=== PATIENT | male | born 1980 | race American Indian/Alaskan Native ===

== ENCOUNTER 2019-04-04 15:30 | Emergency (ER) | payer SELFPAY ==
[2019-04-04 15:54] VITALS: BP 149/100
--- NOTE | 2019-04-04 15:57 | Emergency Department Report ---
Chief Complaint: Dental/Oral Stated Complaint: RT SIDE TOOTHACHE/SWEATS/PAIN Time Seen by Provider: 04/04/19 15:52 - HPI History of Present Illness: This is a 38-year-old male that presents to the ER with right sided dental pain for 3 days. Reports pain is worse with eating. 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 Patient denies any facial swelling. Denies any fever, chills, headache, nausea, vomiting, chest pain or SOB. Denies any other complaints. Denies any allergies. - ROS Review of Systems: Stated complaint: dental pain Other details as noted in HPI Constitutional: denies: fever, malaise ENT: dental pain. denies: ear pain, throat pain Respiratory: denies: cough, shortness of breath - Exam Vital Signs: Vital Signs 04/04/19 15:52 Temperature 98.3 F Pulse Rate 78 Respiratory 18 Rate Blood Pressure 149/100 O2 Sat by Pulse 98 Oximetry Physical Exam: General appearance: alert, in no apparent distress, other (appears well appears) Head exam: Present: atraumatic, normocephalic Eye exam: Present: normal appearance. Absent: scleral icterus, conjunctival injection ENT exam: Present: other (dental caries tooth #30, tenderness, absent gingival swelling) Neck exam: Present: normal appearance, absent lymphadnopathy Respiratory exam: Present: respiratory distress Neurological exam: Present: alert, oriented X3 Psychiatric exam: Present: normal affect, normal mood Skin exam: Present: warm, dry, intact, normal color MSE screening note: Focused history and physical exam performed. Due to findings the following was ordered: ED Medical Decision Making - Medical Decision Making Patient is stable and was examined by me. Given analgesics while in ER. Susceptible of dental pain from #30 dental caries. Discussed plan with patient. He agreed with ER plan. Discharged home with amoxicillin, ibuprofen, and Tramadol. Follow up with dentist and referral to emergency dental clinics. ED Disposition for MSE Clinical Impression: Dental caries, Toothache Disposition: TO HOME OR SELFCARE Is pt being admited?: No Condition: Stable Instructions: Dental Caries (ED), Toothache (ED) Prescriptions: Naproxen [Naprosyn] 500 mg PO BID #20 tablet Amoxicillin [Trimox CAP] 500 mg PO BID #14 capsule traMADol [Ultram 50 MG tab] 50 mg PO Q6HR PRN #12 tablet PRN Reason: Pain Referrals: [facility] [Outside] - 3-5 Days [facility] [Outside] - 3-5 Days [facility] [Outside] - 3-5 Days Time of Disposition: 16:31
[2019-04-04] MEDS ORDERED: NORCO 5/325 PO ONE (17:19)
== END 2019-04-04 17:26 | disposition home or self-care (01) ==
LOC: ED 15:30
DX: K02.9 Dental caries, unspecified (principal); K08.89 Other specified disorders of teeth and supporting structures